=== PATIENT | male | born 1985 | race Two or more races ===

== ENCOUNTER 2017-11-09 00:46 | Emergency (ER) | payer OTHER ==
[~2017-11-09] VITALS: Ht 172.7 cm; Wt 77.1 kg
--- NOTE | 2017-11-09 00:55 | Emergency Room Report ---
History of Present Illness General Chief Complaint: Fever Source: Patient Present Illness HPI This is a 32-year-old male with no past medical history. He presents with chief complaint of cough and fever for the last day. Also with sore throat and body pain. [place] weak and short of breath. No nausea no vomiting. No chest pain. No diaphoresis. Has not taken anything for this. Allergies: Coded Allergies: No Known Allergies (Unverified , 11/09/17) Patient History Past Medical History: none, see triage record, old chart reviewed Past Surgical History: other Pertinent Family History: none Social History: Denies: smoking Immunizations: other Reviewed Nursing Documentation: PMH: Agreed, PSxH: Agreed Nursing Documentation-PMH Past Medical History: No Stated History Review of Systems Constitutional: Reports: fever Eye: Denies: eye pain, blurred vision ENT: Denies: ear pain, nose congestion, throat swelling Respiratory: Denies: cough, shortness of breath Cardiovascular: Denies: chest pain, palpitations Gastrointestinal: Denies: abdominal pain, diarrhea, nausea, vomiting Musculoskeletal: Denies: back pain, joint pain Skin: Denies: rash Neurological: Denies: headache, numbness Endocrine: Denies: increased thirst, increased urine Hematologic/Lymphatic: Denies: easy bruising All Other Systems: negative except mentioned in HPI Physical Exam Vital Signs Date Time Temp Pulse Resp B/P (MAP) Pulse Ox O2 Delivery O2 Flow Rate FiO2 11/09/17 00:48 100.4 144 24 108/65 98 Room Air vitals with fever and tachycardia Sp02 EP Interpretation: reviewed, normal General Appearance: well appearing, no apparent distress, alert Head: normocephalic, atraumatic Eyes: bilateral eye PERRL, bilateral eye EOMI ENT: hearing grossly normal, normal pharynx Neck: full range of motion, supple, no meningismus Respiratory: chest non-tender, lungs clear, normal breath sounds Cardiovascular #1: regular rate, rhythm, no murmur Gastrointestinal: normal bowel sounds, non tender, no mass, no organomegaly, no bruit, non-distended Musculoskeletal: back normal, gait/station normal, normal range of motion Psychiatric: mood/affect normal Skin: warm/dry Medical Decision Making Diagnostic Impression: Primary Impression: Influenza ER Course Patient presents with symptoms consistent with influenza. No pneumonia. No sepsis or diaphoresis. No meningitis. No evidence of bacterial infection. We' ll discharge home. Chest X-Ray Diagnostic Results Chest X-Ray Diagnostic Results : Chest X-Ray Ordered: Yes # of Views/Limited/Complete: 1 View Indication: Shortness of Breath EP Interpretation: Yes Interpretation: no consolidation, no effusion, no pneumothorax, no acute cardiopulmonary disease Impression: No acute disease Electronically Signed by: Berto Graff MD Last Vital Signs Date Time Temp Pulse Resp B/P (MAP) Pulse Ox O2 Delivery O2 Flow Rate FiO2 11/09/17 00:48 100.4 144 24 108/65 98 Room Air Status: improved Disposition: HOME, SELF-CARE Condition: Stable Scripts Oseltamivir Phosphate (Tamiflu) 75 Mg Capsule 75 MG ORAL TWICE A DAY, #10 CAP Prov: BERTO GRAFF M.D. 11/09/17 Ibuprofen* (MOTRIN*) 600 Mg Tablet 600 MG ORAL THREE TIMES A DAY, #30 TAB 0 Refills Prov: BERTO GRAFF M.D. 11/09/17 Additional Instructions: Rest. Increase fluids. Followup with your DrAlison in 7 days. Return to worse. BERTO GRAFF M.D. Nov 09, 2017 00:55
[2017-11-09] MEDS ORDERED: Acetaminophen 500mg (ES) tab ORAL ONE (01:00)
[2017-11-09] MEDS ORDERED: TAMIFLU75 MG ORAL (01:02)
[2017-11-09] MEDS ORDERED: IBUPROFEN600 MG ORAL (01:02)
[2017-11-09 01:42] VITALS: BP 108/65
[2017-11-09] MEDS ORDERED: ALBUTEROL SULF8.5 GM INH (03:47)
--- NOTE | 2017-11-09 11:34 | Diagnostic Imaging Report ---
Indication: Dyspnea Comparison: None A single view chest radiograph was obtained. Findings: Cardiomediastinal appearance is within normal limits for age. Pulmonary vascularity is appropriate. The diaphragmatic contour is smooth and costophrenic angles are sharp. No pleural effusions are identified. The bones are unremarkable. Impression: No acute findings
== END 2017-11-09 01:43 | disposition home or self-care (01) ==
LOC: EMR 00:59
DX: J11.1 Influenza due to unidentified influenza virus with other respiratory manifestations (principal)
CPT/HCPCS: 71010; 99284

== ENCOUNTER 2018-11-19 04:48 | Emergency (ER) | payer OTHER ==
[~2018-11-19] VITALS: Ht 180.3 cm; Wt 77.1 kg
[~2018-11-19 04:48] MED LIST: ALBUTEROL SULF8.5 GM INH; IBUPROFEN600 MG ORAL; TAMIFLU75 MG ORAL
[2018-11-19] MEDS ORDERED: NKM (05:09)
[2018-11-19] MEDS ORDERED: ALBUTEROL SULF8.5 GM INH (05:18)
--- NOTE | 2018-11-19 05:20 | NUR ---
ED Nurse Note: recieved pt on gurney from home with c/o sorethroat with headache and mild intermittent nausea for past 2 days, pt states this am with sob, no labored breathing ntoed, pt is calm and resting quietly, no cp, v/s stable, no fevrs or diarrhea, pt has mild congestion noted when speaking. no other complaints or discomforts noted.
[2018-11-19] MEDS ORDERED: Albuterol ud Inhalation HHN ONE (05:30)
[2018-11-19] MEDS ORDERED: AMOXICILLIN500 MG ORAL (05:51)
--- NOTE | 2018-11-19 05:55 | Emergency Room Report ---
History of Present Illness General Chief Complaint: Flu Like Symptoms Source: Patient Present Illness HPI Patient presents emergency department today complaint cough congestion and sinus pain. Patient states this happens every year. States that he's also feeling a little short of breath. He likes some respiratory treatments. Symptoms as noted moderate. Patient denies any leg pain leg swelling. Patient also complains of sore throat.No other modifying factors. No other associated signs and symptoms. No other complaints were noted. Allergies: Coded Allergies: No Known Allergies (Unverified , 11/09/17) Patient History Past Medical History: none Past Surgical History: none Pertinent Family History: none Social History: Denies: smoking, alcohol use, drug use Reviewed Nursing Documentation: PMH: Agreed; PSxH: Agreed Nursing Documentation-PMH Past Medical History: No Stated History Review of Systems All Other Systems: negative except mentioned in HPI Physical Exam Vital Signs Date Time Temp Pulse Resp B/P (MAP) Pulse Ox O2 Delivery O2 Flow Rate FiO2 11/19/18 05:06 98.2 107 16 109/63 97 Room Air 11/19/18 05:49 21 Sp02 EP Interpretation: reviewed, normal General Appearance: normal inspection, well appearing, no apparent distress, alert Head: atraumatic Eyes: bilateral eye normal inspection ENT: hearing grossly normal, normal voice, pharyngeal erythema Neck: normal inspection, full range of motion, supple, no bony tend Respiratory: normal inspection, no respiratory distress, no retraction, decreased breath sounds, wheezing, expiration Cardiovascular #1: regular rate, rhythm, no edema Gastrointestinal: normal inspection, normal bowel sounds, non tender, soft, no guarding, no hernia Genitourinary: no CVA tenderness Musculoskeletal: normal inspection, back normal, normal range of motion Neurologic: normal inspection, alert, responsive, speech normal Psychiatric: normal inspection, judgement/insight normal, mood/affect normal Skin: normal inspection, normal color, no rash Medical Decision Making Diagnostic Impression: Primary Impression: Acute bacterial pharyngitis Additional Impression: Influenza-like symptoms ER Course Patient presents emergency department today complaining of sore throat cough congestion shortness of breath. Differential considerations: Pneumonia, viral syndrome, bronchitis, pharyngitis just name a few. Patient's exam fairly benign. Patient was given a respiratory treatment with significant improvement symptoms. Patient was given prescription for albuterol and amoxicillin for his pharyngitis.Patient is advised to follow up with primary doctor in 2-3 days and return the emergency room for any worsening symptoms and as needed. Last Vital Signs Date Time Temp Pulse Resp B/P (MAP) Pulse Ox O2 Delivery O2 Flow Rate FiO2 11/19/18 05:49 106 20 98 Room Air 21 11/19/18 05:06 98.2 109/63 Status: improved Disposition: HOME, SELF-CARE Condition: Stable Scripts Amoxicillin* (AMOXIL*) 500 Mg Capsule 500 MG ORAL THREE TIMES A DAY, #21 CAP Prov: Nic Alvarez MD 11/19/18 Albuterol Sulfate* (ALBUTEROL SULFATE MDI*) 8.5 Gm Hfa.aer.ad 2 PUFF INH Q4H PRN for cough/wheezing, #1 EA 0 Refills Prov: Nic Alvarez MD 11/19/18 Patient Instructions: Bronchospasm, Adult, Pharyngitis, [id number] Nic Alvarez MD Nov 19, 2018 05:55
[2018-11-19 06:45] VITALS: BP 111/71
--- NOTE | 2018-11-19 06:50 | NUR ---
ED Nurse Note: pt being d/c to home, awake, alert and oriented x 4, ambulatory, stats is breathing better, no cp, no sob, remains with mild sore throat, pt given f/u info, after care instructions and re-verbalizes proper medication administration with prescription, armband removed, nad noted during d/c to home.
[2018-11-19 07:00] VITALS: BP 111/71
== END 2018-11-19 07:00 | disposition home or self-care (01) ==
LOC: EMR 05:39
DX: J02.8 Acute pharyngitis due to other specified organisms (principal); B96.89 Other specified bacterial agents as the cause of diseases classified elsewhere; J11.1 Influenza due to unidentified influenza virus with other respiratory manifestations
CPT/HCPCS: 94640; 94664; 99284